=== PATIENT | male | born 1965 | race Caucasian/White ===

== ENCOUNTER 2017-12-28 20:15 | Emergency (ER) | payer BC, OTHER ==
[~2017-12-28] VITALS: Ht 175.3 cm; Wt 112.4 kg
[~2017-12-28 20:15] MED LIST: ZCRUNK; [UNRECOGNIZED DRUG - OTHER]
[2017-12-28 20:17] VITALS: TEMP 36.9; Ht 175.3 cm; Wt 112.4 kg
--- NOTE | 2017-12-28 20:30 | EMERGENCY ROOM VISIT NOTE ---
History Report prepared by Fei: Audra Irene Under the Supervision of: Dr. Aden Borjas M.D. First contact with patient: 20:22 Chief Complaint: GROIN PAIN Stated Complaint: PAIN IN R GROIN History of Present Illness The patient is a 52 year old male who presents to the Emergency Room with complaints of right testicular pain beginning more than 3 days ago. He rates his pain at a 2/10. The patient states that this pain came on suddenly and that he was unable to walk due to the pain. He reports that he worked out at the [facility] before work but that he did not have pain then. The patient states that he saw his family doctor to check for a hernia or testicular cancer and was told he does not have either. The patient states that he has still been uncomfortable with the pain. He reports that he noticed white penile discharge with his bowel movement today. The patient reports that once or twice a year over the last 5 years his right epididymis does get sore. He reports a history of a vasectomy. He denies having a fever and burning with urination. He denies a history of diabetes. Source of History: patient Onset: more than 3 days ago Position: other (right testicle ) Symptom Intensity: rated at a 2/10 Associated Symptoms: No fevers, No urinary symptoms Note: additional symptom: white penile discharge Review of Systems See HPI for pertinent positives & negatives. A total of 10 systems reviewed and were otherwise negative. Past Medical & Surgical Surgical Problems: (1) H/O vasectomy Family History Cancer FH: heart disease Hypertension Social History Smoking Status: Never Smoker Marital Status: Occupation Status: employed Current/Historical Medications Scheduled Cholecalciferol (Vitamin D 1000 Unit), 1,000 INTER.UNIT PO DAILY Ciprofloxacin Hcl (Cipro), 500 MG PO BID Cyanocobalamin (Vitamin B12 100 Mcg), 1 TAB PO DAILY Fish Oil (Acushnet-3), 1 CAP PO DAILY Hctz/Losartan (Hyzaar 12.5MG/50MG), 1 TAB PO DAILY Niacin (Niacin), 1 TAB PO DAILY Simvastatin (Zocor), 10 MG PO QAM Allergies Uncoded Allergies: PCN (Allergy, rash, 07/09/09) Physical Exam Vital Signs Date Time Temp Pulse Resp B/P (MAP) Pulse Ox O2 Delivery O2 Flow Rate FiO2 12/28/17 21:56 75 16 138/89 95 12/28/17 21:32 75 16 138/89 95 Room Air 12/28/17 20:17 36.9 83 18 172/97 96 Room Air Physical Exam GENERAL: Patient is in no acute distress. HEENT: No acute trauma, normocephalic atraumatic, mucous membranes moist, no nasal congestion, no scleral icterus. NECK: No stridor, no adenopathy, no meningismus, trachea is midline. LUNGS: Clear to auscultation bilaterally, no wheeze, no rhonchi, breath sounds equal. HEART: Without murmurs gallops or rubs, regular rate and rhythm. ABDOMEN: Soft, nontender, bowel sounds positive, no hernias, no peritonitis. EXTREMITIES: No cyanosis or edema, full range of motion of all the joints without pain or difficulty, no signs for acute trauma. NEUROLOGIC: Oriented x 3, no acute motor or sensory deficits, no focal weakness. SKIN: No rash, no jaundice, no diaphoresis. GROIN: Circumcised. No evidence for hernia even with straining. Testicles are normal in size. Fullness to the right epididymis which is slightly tender. Left epididymis is nontender. Medical Decision & Procedures ER Provider Diagnostic Interpretation: Radiology results as stated below per my review and radiologist interpretation: (TESTICULAR) SCROTUM-CONT HISTORY: Pain. Edema. swelling pain, right side COMPARISON: None. FINDINGS: Right testis: Maximum dimension 4.9 cm. Normal vascular flow. Moderately enlarged epididymis demonstrate mild hyperemia. Left testis: 4.7 cm. Normal vascular flow. Mild fullness of the epididymis IMPRESSION: 1. Normal testes bilaterally. 2. Right and to lesser extent left epididymitis. 3. Very small bilateral hydroceles. The above report was generated using voice recognition software. It may contain grammatical, syntax or spelling errors. Electronically signed by: Horace Patel M.D. 12/28/2017 9:13 PM Dictated Date/Time: 12/28/2017 9:12 PM Laboratory Results Test 12/28/17 20:38 Urine Color YELLOW Urine Appearance CLEAR (CLEAR) Urine pH 5.0 (4.5-7.5) Urine Specific [place] 1.034 (1.000-1.030) Urine Protein NEG (NEG) Urine Glucose (UA) NEG (NEG) Urine Ketones TRACE (NEG) Urine Occult Blood NEG (NEG) Urine Nitrite NEG (NEG) Urine Bilirubin NEG (NEG) Urine Urobilinogen NEG (NEG) Urine Leukocyte Esterase NEG (NEG) Laboratory results reviewed by me. Medications Administered Medications (Trade) Dose Ordered Sig/Yasmine Route Start Time Stop Time Status Last Admin Dose Admin Ciprofloxacin (Cipro Tab) 500 mg NOW STAT PO 12/28/17 21:32 12/28/17 21:33 DC 12/28/17 22:02 500 MG ED Course 2022: The patient was evaluated in room A12B. A complete history and physical exam was performed. 2131: Ordered Ciprofloxacin 500 mg PO. 2136: Reevaluated the patient. Discussed results and discharge instructions: He verbalized understanding and agreement. The patient is ready for discharge. Medical Decision The patient is a 52 year old male who presents to the ED with complaints of right groin pain. Differential diagnoses considered include spermatocele, epididymitis, testicular torsion, hernia, and malignancy . The patient presents with some right groin and testicle pain. He has had a vasectomy in the past. He thought he noted some whitish penile discharge with a bowel movement and he was concerned for possible STD. He has seen his family doctor already but his symptoms were persisting so he presents to the ER. Urinalysis does not show infection. Testicular ultrasound does show evidence for epididymitis. No evidence for testicular torsion or for malignancy. On exam, there was no scrotal cellulitis, no evidence for hernia. GC and chlamydia swabs were done, these are pending. The patient is being treated with oral Cipro. He was given a dose here. He will follow with urology, if worsening, he can return. Medication Reconcilliation Current Medication List: was personally reviewed by me Blood Pressure Screening Patient's blood pressure: Elevated blood pressure Blood pressure disposition: Elevated BP felt to be situational Impression Primary Impression: Epididymitis Additional Impression: Right groin pain Scribe Attestation The scribe's documentation has been prepared under my direction and personally reviewed by me in its entirety. I confirm that the note above accurately reflects all work, treatment, procedures, and medical decision making performed by me. Departure Information Dispostion Home / Self-Care Prescriptions Ciprofloxacin Hcl (CIPRO) 500 Mg Tab 500 MG PO BID, #20 TAB Prov: Aden Borjas M.D. 12/28/17 Referrals No Doctor, Assigned (PCP) Fredy Liu M.D. Forms HOME CARE DOCUMENTATION FORM, IMPORTANT VISIT INFORMATION, WORK / SCHOOL INSTRUCTIONS Patient Instructions My addwish Additional Instructions cipro 2x per day for 10 days consider more supportive underwear until feeling better tylenol for pain follow with urology--call saturday for an appt return for worsening symptoms we will call with any positive culture results Problem Qualifiers
--- NOTE | 2017-12-28 21:14 | DIAGNOSTIC IMAGING REPORT ---
(TESTICULAR) SCROTUM-CONT HISTORY: Pain. Edema. swelling pain, right side COMPARISON: None. FINDINGS: Right testis: Maximum dimension 4.9 cm. Normal vascular flow. Moderately enlarged epididymis demonstrate mild hyperemia. Left testis: 4.7 cm. Normal vascular flow. Mild fullness of the epididymis IMPRESSION: 1. Normal testes bilaterally. 2. Right and to lesser extent left epididymitis. 3. Very small bilateral hydroceles. The above report was generated using voice recognition software. It may contain grammatical, syntax or spelling errors. Electronically signed by: Horace Patel M.D. 12/28/2017 9:13 PM Dictated Date/Time: 12/28/2017 9:12 PM
[2017-12-28] MEDS ORDERED: CYAN100T6 PO (21:20)
[2017-12-28] MEDS ORDERED: SIMV10TA2 PO (21:20)
[2017-12-28] MEDS ORDERED: HYZ/50125 PO (21:20)
[2017-12-28] MEDS ORDERED: CHOL100027 PO (21:20)
[2017-12-28] MEDS ORDERED: OMEG10007 PO (21:21)
[2017-12-28] MEDS ORDERED: NIAC50TA9 PO (21:21)
[2017-12-28] MEDS ORDERED: CIPROFLOXACIN 500 MG TAB PO STA (21:32)
[2017-12-28] MEDS ORDERED: CIPR-255 PO (21:54)
[2017-12-28 21:56] VITALS: BP 138/89; PULSE 75; O2SAT 95
== END 2017-12-28 21:56 | disposition home or self-care (01) ==
LOC: C.EDB 20:16 → C.EDA 21:56
DX: N45.1 Epididymitis (principal); R10.9 Unspecified abdominal pain; Z80.9 Family history of malignant neoplasm, unspecified; Z82.49 Family history of ischemic heart disease and other diseases of the circulatory system; Z79.899 Other long term (current) drug therapy; Z88.0 Allergy status to penicillin

== ENCOUNTER → 2018-05-01 | Outpatient (CLI) | payer OTHER ==
[~2018-05-01] MED LIST changes: +CHOL100027 PO; +CYAN100T6 PO; +HYZ/50125 PO; +NIAC50TA9 PO; +OMEG10007 PO; +SIMV10TA2 PO; -ZCRUNK; -[UNRECOGNIZED DRUG - OTHER]
--- NOTE | 2018-05-01 17:24 | DIAGNOSTIC IMAGING REPORT ---
L LOWER EXT JOINT WITHOUT CLINICAL HISTORY: LT KNEE PAIN, POSSIBLE TEAR pain TECHNIQUE: Multiaxial MRI acquisition COMPARISON STUDY: None FINDINGS: Signal characteristics of all major osseous structures are unremarkable. No significant bone marrow replacing process. Very small joint effusion. Small popliteal cyst posterior medial joint compartment measuring 4 x 1.5 cm. Anterior and posterior cruciate ligament are intact. The collateral ligaments structures are unremarkable. menisci shows presence of a focal truncation apex mid medial meniscus. The remaining menisci are unremarkable. The collateral ligament structures are unremarkable. IMPRESSION: 1. Small focal tear with associated with a focal meniscal truncation mid medial meniscus. 2. Mild generalized soft tissue edema. 3. Small joint effusion. 4. Small linear popliteal cyst posterior to the medial joint compartment. The above report was generated using voice recognition software. It may contain grammatical, syntax or spelling errors. Electronically signed by: Horace Patel M.D. 05/01/2018 5:23 PM Dictated Date/Time: 05/01/2018 5:20 PM
== END | disposition home or self-care (01) ==
LOC: C.MRI 16:30
PROVIDERS: ATTEND Orthopaedic Surgery
DX: M25.562 Pain in left knee (principal); S83.242A Other tear of medial meniscus, current injury, left knee, initial encounter; X58.XXXA Exposure to other specified factors, initial encounter; M25.462 Effusion, left knee; M71.22 Synovial cyst of popliteal space [Baker], left knee